=== PATIENT | male | born 1950 | race Caucasian/White ===

== ENCOUNTER 2017-04-02 08:54 | Emergency (ER) | payer OTHER, SELFPAY ==
--- NOTE | 2017-04-02 10:08 | RAD ---
LEFT FOOT THREE VIEWS: History: Injury. There is a wound on the left foot, possible infection. FINDINGS: There are enthesophytes from both posterior implants or calcaneus. Mild degenerative changes with ti biotalar joint and intertarsal joints. Degenerative changes at the tarsal metatarsal joints. Mild de generative changes at the first MTP and first IP joint. No fracture or acute osseous lesion. No focal lytic or destructive process. No plain film evidence o f osteomyelitis identified. IMPRESSION: Degenerative changes as described. POS: [facility]
== END 2017-04-02 10:59 | disposition home or self-care (01) ==
LOC: ERS 08:54
DX: M25.572 Pain in left ankle and joints of left foot (principal)

== ENCOUNTER 2017-11-08 12:14 | Inpatient (IN) | payer OTHER, SELFPAY ==
[2017-11-08] MEDS ORDERED: Morphine 4 MG/ML VIAL ONE (13:03)
--- NOTE | 2017-11-08 13:51 | RAD ---
RIGHT SHOULDER 3 VIEWS: Date: 11/08/17 HISTORY: Fall, right shoulder pain. FINDINGS/IMPRESSION: Degenerative changes are present. There is a fracture involving the right clavicular shaft with 5.5 c m overlap of the fracture fragments. There are fractures of the right 3rd, 4th, and 5th ribs. POS: [facility]
[2017-11-08 14:10] LABS: #Eosinphils 0.1 thou/uL (0.0-0.7); #Lymphocytes 0.8 thou/uL (1.20-3.40); #Monocytes 0.5 thou/uL (0.11-0.59); %Basophils 0.1 % (0.0-1.0); %Eosinophils 0.9 % (0.0-10.0); %Lymphocytes 6.7 % (21.0-51.0); %Monocytes 3.9 % (0.0-10.0); %Neutrophils 88.4 % (42.0-75.0); Hemoglobin 13.4 g/dL (14.0-18.0); Mean Corpuscular HGB CONC 33.6 g/dL (32.0-36.0); Mean Corpuscular Hemoglobin 33.5 pg (27.0-31.0); Mean Corpuscular Volume 99.6 fl (80.0-94.0); Mean Platelet Volume 8.8 fL (7.4-10.4); Platelet Count 135 thou/uL (130-400); RBC Distribution Width 11.9 % (11.5-14.5); Red Blood Cell (RBC) Count 4.01 mill/uL (4.70-6.10); White Blood Cell (WBC) Count 12.5 thou/uL (4.8-10.8)
[2017-11-08] MEDS ORDERED: Ketorolac Tromethamine 30 MG/ML VIAL ONE (14:23)
[2017-11-08 14:30] LABS: ALT (SGPT) 40 U/L (8-55); AST (SGOT) 58 U/L (5-34); Albumin 4.1 g/dL (3.4-4.8); Alkaline Phosphatase 92 U/L (40-150); Anion Gap 10 mmol/L (10-20); BUN (Urea Nitrogen) 15 mg/dL (8.4-25.7); Bilirubin, Total 0.9 mg/dL (0.2-1.2); Calc. Creatinine Clearance 0 mL/min (70-130); Calcium 9.2 mg/dL (7.8-10.44); Carbon Dioxide 24 mmol/L (23-31); Chloride 107 mmol/L (98-107); Estimated GFR-MDRD 75; Globulin 3.2 g/dL (2.4-3.5); Glucose 168 mg/dL (80-115); Potassium 4.3 mmol/L (3.5-5.1); Protein, Total 7.3 g/dL (5.8-8.1); Sodium 137 mmol/L (136-145)
--- NOTE | 2017-11-08 14:56 | RAD ---
RIGHT CLAVICLE 2 VIEWS: Date: 11/08/17 HISTORY: Fall, pain. FINDINGS/IMPRESSION: There is a fracture involving the clavicular shaft with overriding of the clavicular fragments. Multi ple right-sided rib fractures are present. POS: [facility]
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
[2017-11-08] MEDS ORDERED: Dextrose 5% in Water 1,000 ML IV PRN (19:06)
[2017-11-08] MEDS ORDERED: HumaLOG 300 UNITS/3 ML VIAL SC PRN (19:06)
[2017-11-08] MEDS ORDERED: Ondansetron ODT 4 MG TAB PO PRN (19:06)
[2017-11-08] MEDS ORDERED: Dextrose 50% Abboject 50 ML SYRINGE SLOW IVP PRN (19:06)
[2017-11-08] MEDS ORDERED: Rib Fracture Protocol PO SCH (19:15)
[2017-11-08] MEDS ORDERED: Cyclobenzaprine 10 MG TAB PO PRN (19:30)
[2017-11-08] MEDS ORDERED: Ondansetron HCl/PF 4 MG/2 ML Vial IVP PRN (19:36)
[2017-11-08] MEDS ORDERED: Ondansetron ODT 4 MG TAB SL PRN (19:36)
[2017-11-08 19:43] LABS: INR-International Normal Ratio 1.1; PTT 23.4 SEC (22.9-36.1); Prothrombin Time 14.5 SEC (12.0-14.7)
[2017-11-08 19:44] LABS: Hemoglobin A1c 6.2 % (4.0-6.0)
[2017-11-08 20:07] VITALS: BMI 28.2
[2017-11-08] MEDS: Sodium Chloride 0.9% 1,000 ML IV SCH (20:36)
[2017-11-08] MEDS: Famotidine 20 MG TAB PO SCH (20:45)
[2017-11-08] MEDS: Gabapentin 100 MG CAP PO SCH (20:45)
[2017-11-08] MEDS: Ibuprofen 600 MG TAB PO SCH (20:45)
[2017-11-08] MEDS: traMADol HCl 50 MG TAB PO SCH (23:41)
[2017-11-08] MEDS: Acetaminophen 500 MG TAB PO SCH (23:41)
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
[2017-11-09] MEDS: Acetaminophen 500 MG TAB PO SCH ×2 (06:10→12:01)
[2017-11-09] MEDS: traMADol HCl 50 MG TAB PO SCH ×2 (06:10→12:01)
[2017-11-09] MEDS: Ibuprofen 600 MG TAB PO SCH ×2 (06:10→14:44)
[2017-11-09] MEDS: Sodium Chloride 0.9% 1,000 ML IV SCH (06:19)
[2017-11-09] MEDS: Gabapentin 100 MG CAP PO SCH ×2 (09:06→14:44)
[2017-11-09] MEDS: Famotidine 20 MG TAB PO SCH (09:06)
--- NOTE | 2017-11-09 09:08 | RAD ---
PORTABLE UPRIGHT FRONTAL CHEST RADIOGRAPH: DATE: 11/09/17. COMPARISON: 07/24/16. HISTORY: Fracture, pneumothorax. FINDINGS: Heart and mediastinal contours are within normal limits. Numerous mildly displaced fractures are seen involving the numerous right-sided ribs laterally in the right lung apex region. There is an obliquely oriented displaced mid shaft right clavicle fracture. There is no pneumothorax seen. There is increased linear interstitial density noted. IMPRESSION: Multiple stable right-sided rib fractures. Obliquely oriented right clavicle fracture. No pneumotho rax seen. POS: [facility]
[2017-11-09 15:53] VITALS: BP 162/74; TEMP 98.2
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
== END 2017-11-09 17:56 | disposition home or self-care (01) | DRG 200 ==
LOC: ERS 12:14 → SURG B 18:18
PROVIDERS: ADMIT Surgery; ATTEND Surgery
DX: S27.0XXA Traumatic pneumothorax, initial encounter (principal); S22.32XA Fracture of one rib, left side, initial encounter for closed fracture; S22.31XA Fracture of one rib, right side, initial encounter for closed fracture; R41.3 Other amnesia; Z79.01 Long term (current) use of anticoagulants; V19.9XXA Pedal cyclist (driver) (passenger) injured in unspecified traffic accident, initial encounter; S42.001A Fracture of unspecified part of right clavicle, initial encounter for closed fracture; R73.03 Prediabetes; R73.9 Hyperglycemia, unspecified
CPT/HCPCS: 36415; 36416; 71045; 80053; 83036; 85025; 85610; 85730; 94640; 96374; 96375; A4216; G8978-GP-CJ; G8979-GP-CJ; G8980-GP-CJ; G8987-GO-CJ; G8989-GO-CJ; J1885; J2270; J7620

== ENCOUNTER 2021-09-28 11:16 | Inpatient (IN) | payer OTHER, SELFPAY ==
[2021-09-28 12:27] LABS: #Eosinphils 0.1 thou/uL (0.0-0.7); #Lymphocytes 1.2 thou/uL (1.20-3.40); #Monocytes 0.5 thou/uL (0.11-0.59); #Neutrophils 4.4 thou/uL (1.40-6.50); %Basophils 0.2 % (0.0-1.0); %Eosinophils 1.7 % (0.0-10.0); %Lymphocytes 18.9 % (21.0-51.0); %Monocytes 8.4 % (0.0-10.0); %Neutrophils 70.8 % (42.0-75.0); Hemoglobin 15.1 g/dL (14.0-18.0); Mean Corpuscular HGB CONC 33.5 g/dL (32.0-36.0); Mean Corpuscular Hemoglobin 34.4 pg (27.0-31.0); Mean Platelet Volume 10.7 fL (7.4-10.4); Platelet Count 136 thou/uL (130-400); RBC Distribution Width 11.9 % (11.5-14.5); Red Blood Cell (RBC) Count 4.39 mill/uL (4.70-6.10); White Blood Cell (WBC) Count 6.2 thou/uL (4.8-10.8)
[2021-09-28 12:45] LABS: ALT (SGPT) 25 U/L (8-55); AST (SGOT) 25 U/L (5-34); Albumin 4.5 g/dL (3.4-4.8); Alkaline Phosphatase 89 U/L (40-110); Anion Gap 17 mmol/L (10-20); BUN (Urea Nitrogen) 14 mg/dL (8.4-25.7); Bilirubin, Total 1.8 mg/dL (0.2-1.2); Calc. Creatinine Clearance 0 mL/min (70-130); Calcium 9.5 mg/dL (7.8-10.44); Carbon Dioxide 21 mmol/L (23-31); Chloride 105 mmol/L (98-107); Globulin 2.9 g/dL (2.4-3.5); Glucose 142 mg/dL (80-115); Potassium 4.6 mmol/L (3.5-5.1); Protein, Total 7.4 g/dL (5.8-8.1); Sodium 138 mmol/L (136-145)
[2021-09-28 12:51] LABS: Acetaminophen Less than 10.0 mcg/mL (10.0-30.0); Alcohol Less than 10 mg/dL (Less than 10); Salicylate Less than 8.0 mg/dL (15.0-30.0)
[2021-09-28 13:24] LABS: Bilirubin Negative (Negative); Blood, Urine Negative (Negative); Clarity Clear (Clear); Glucose, Urine (Dipstick) Normal (Negative); Ketone, Urine Trace mg/dL (Negative); Leukocyte Negative Leu/uL (Negative); Nitrite Negative (Negative); Protein, Urine (Dipstick) Negative (Neg-Trace); Specific Gravity, Urine 1.008 (1.002-1.036); Urobilinogen Normal mg/dL (Less than 2)
[2021-09-28 13:33] LABS: Amphetamine Not Detected (NotDetected); Barbiturates Screen Not Detected (NotDetected); Benzodiazepine Screen Not Detected (NotDetected); Cocaine Metabolite Screen Not Detected (NotDetected); Methadone Not Detected (NotDetected); Methamphetamine Not Detected (NotDetected); Opiate Screen Not Detected (NotDetected); Oxycodone Screen Not Detected (NotDetected); Phencyclidine (PCP) Not Detected (NotDetected); THC/Cannabinoid Screen Not Detected (NotDetected); Tricyclic Screen Not Detected (NotDetected)
[2021-09-28] MEDS ORDERED: Acetaminophen 325 MG TAB PO PRN (14:03)
[2021-09-28 15:27] LABS: HIV (1/2) Antibody/Antigen Non-Reactive (NonReactive); HIV 1/2 INDEX 0.13 S/CO (<1.00)
[2021-09-28] MEDS: Thiamine HCl 200 MG/2 ML VIAL SLOW IVP SCH (15:32)
[2021-09-28 15:33] LABS: Vitamin B12 535 pg/mL (211-911)
[2021-09-28 15:39] VITALS: BMI 32.0
[2021-09-28 16:32] LABS: SARS-CoV-2 NAA Rapid Test Not Detected (NotDetected)
[2021-09-29 08:16] LABS: #Eosinphils 0.1 thou/uL (0.0-0.7); #Lymphocytes 1.3 thou/uL (1.20-3.40); #Monocytes 0.5 thou/uL (0.11-0.59); #Neutrophils 3.7 thou/uL (1.40-6.50); %Basophils 0.5 % (0.0-1.0); %Eosinophils 2.3 % (0.0-10.0); %Lymphocytes 22.2 % (21.0-51.0); %Monocytes 8.3 % (0.0-10.0); %Neutrophils 66.6 % (42.0-75.0); Hemoglobin 13.3 g/dL (14.0-18.0); Mean Corpuscular HGB CONC 33.5 g/dL (32.0-36.0); Mean Corpuscular Hemoglobin 34.7 pg (27.0-31.0); Mean Platelet Volume 10.7 fL (7.4-10.4); Platelet Count 120 thou/uL (130-400); RBC Distribution Width 11.9 % (11.5-14.5); Red Blood Cell (RBC) Count 3.82 mill/uL (4.70-6.10); White Blood Cell (WBC) Count 5.6 thou/uL (4.8-10.8)
[2021-09-29 08:36] LABS: ALT (SGPT) 21 U/L (8-55); AST (SGOT) 17 U/L (5-34); Albumin 3.9 g/dL (3.4-4.8); Alkaline Phosphatase 68 U/L (40-110); Anion Gap 13 mmol/L (10-20); BUN (Urea Nitrogen) 11 mg/dL (8.4-25.7); Bilirubin, Total 1.2 mg/dL (0.2-1.2); Calc. Creatinine Clearance 94 mL/min (70-130); Carbon Dioxide 23 mmol/L (23-31); Chloride 107 mmol/L (98-107); Globulin 2.5 g/dL (2.4-3.5); Glucose 134 mg/dL (80-115); Potassium 3.7 mmol/L (3.5-5.1); Protein, Total 6.4 g/dL (5.8-8.1); Sodium 139 mmol/L (136-145)
[2021-09-29] MEDS: Folic Acid 1 MG TAB PO SCH (08:50)
[2021-09-29] MEDS: Enoxaparin Sodium 40 MG/0.4 ML SYRINGE SC SCH (08:50)
[2021-09-29 09:34] LABS: Hep C IgG Ab Non-Reactive (NonReactive); Hep C Index 0.06 S/CO (0-0.79)
[2021-09-29 11:52] LABS: Syphilis Antibody Nonreactive (Nonreactive); Syphilis Antibody Index 0.04 S/CO (<1.00 Non-Reactive)
[2021-09-29] MEDS: Thiamine HCl 200 MG/2 ML VIAL SLOW IVP SCH (14:43)
[2021-09-30] MEDS: Enoxaparin Sodium 40 MG/0.4 ML SYRINGE SC SCH (09:17)
[2021-09-30] MEDS: Folic Acid 1 MG TAB PO SCH (09:17)
[2021-09-30] MEDS: Thiamine HCl 200 MG/2 ML VIAL SLOW IVP SCH (15:08)
[2021-10-01] MEDS: Folic Acid 1 MG TAB PO SCH (08:38)
[2021-10-01] MEDS: Enoxaparin Sodium 40 MG/0.4 ML SYRINGE SC SCH (08:38)
[2021-10-02] MEDS: Folic Acid 1 MG TAB PO SCH (08:25)
[2021-10-02] MEDS: Enoxaparin Sodium 40 MG/0.4 ML SYRINGE SC SCH (08:26)
[2021-10-03] MEDS: Folic Acid 1 MG TAB PO SCH (08:53)
[2021-10-03] MEDS: Enoxaparin Sodium 40 MG/0.4 ML SYRINGE SC SCH (08:53)
[2021-10-04] MEDS: Enoxaparin Sodium 40 MG/0.4 ML SYRINGE SC SCH (08:17)
[2021-10-04] MEDS: Folic Acid 1 MG TAB PO SCH (08:17)
[2021-10-04 22:58] LABS: SARS-CoV-2 PCR by NAA Not Detected (NotDetected)
[2021-10-05] MEDS: Folic Acid 1 MG TAB PO SCH (08:51)
[2021-10-05] MEDS: Enoxaparin Sodium 40 MG/0.4 ML SYRINGE SC SCH (08:51)
[2021-10-05] MEDS: Cholecalciferol 1,000 UNITS (25 MCG) TAB PO SCH (08:51)
[2021-10-05] MEDS: Donepezil HCl 10 MG TAB PO SCH (08:52)
[2021-10-05] MEDS: Loratadine 10 MG TAB PO SCH (08:52)
[2021-10-05] MEDS: Cyanocobalamin (Vitamin B-12) 1,000 MCG TAB PO SCH (08:52)
[2021-10-05] MEDS ORDERED: CHOLECALCIFEROL 50 MCG PO SCH (09:00)
[2021-10-06] MEDS: Folic Acid 1 MG TAB PO SCH (08:57)
[2021-10-06] MEDS: Enoxaparin Sodium 40 MG/0.4 ML SYRINGE SC SCH (08:57)
[2021-10-06] MEDS: Cholecalciferol 1,000 UNITS (25 MCG) TAB PO SCH (08:57)
[2021-10-06] MEDS: Cyanocobalamin (Vitamin B-12) 1,000 MCG TAB PO SCH (08:57)
[2021-10-06] MEDS: Loratadine 10 MG TAB PO SCH (08:57)
[2021-10-06] MEDS: Donepezil HCl 10 MG TAB PO SCH (08:57)
[2021-10-07] MEDS: Cholecalciferol 1,000 UNITS (25 MCG) TAB PO SCH (08:09)
[2021-10-07] MEDS: Folic Acid 1 MG TAB PO SCH (08:09)
[2021-10-07] MEDS: Donepezil HCl 10 MG TAB PO SCH (08:09)
[2021-10-07] MEDS: Enoxaparin Sodium 40 MG/0.4 ML SYRINGE SC SCH (08:10)
[2021-10-07] MEDS: Cyanocobalamin (Vitamin B-12) 1,000 MCG TAB PO SCH (08:10)
[2021-10-07] MEDS: Loratadine 10 MG TAB PO SCH (08:10)
[2021-10-08] MEDS: Enoxaparin Sodium 40 MG/0.4 ML SYRINGE SC SCH (09:10)
[2021-10-08] MEDS: Donepezil HCl 10 MG TAB PO SCH (09:11)
[2021-10-08] MEDS: Folic Acid 1 MG TAB PO SCH (09:11)
[2021-10-08] MEDS: Loratadine 10 MG TAB PO SCH (09:11)
[2021-10-08] MEDS: Cyanocobalamin (Vitamin B-12) 1,000 MCG TAB PO SCH (09:11)
[2021-10-08] MEDS: Cholecalciferol 1,000 UNITS (25 MCG) TAB PO SCH (09:13)
[2021-10-09] MEDS: Enoxaparin Sodium 40 MG/0.4 ML SYRINGE SC SCH (07:55)
[2021-10-09] MEDS: Cholecalciferol 1,000 UNITS (25 MCG) TAB PO SCH (07:55)
[2021-10-09] MEDS: Cyanocobalamin (Vitamin B-12) 1,000 MCG TAB PO SCH (07:56)
[2021-10-09] MEDS: Donepezil HCl 10 MG TAB PO SCH (07:56)
[2021-10-09] MEDS: Folic Acid 1 MG TAB PO SCH (07:56)
[2021-10-09] MEDS: Loratadine 10 MG TAB PO SCH (07:56)
[2021-10-09 08:23] VITALS: BP 125/80; TEMP 97.8
== END 2021-10-09 15:10 | DRG 56 ==
LOC: ERS 11:16 → T4-B 13:30 → OBSVTOIN 10-01 11:36
PROVIDERS: ADMIT Family Medicine; ATTEND Family Medicine
DX: G30.9 Alzheimer's disease, unspecified (principal); G93.41 Metabolic encephalopathy; Z20.822 Contact with and (suspected) exposure to COVID-19; F02.80 Dementia in other diseases classified elsewhere, unspecified severity, without behavioral disturbance, psychotic disturbance, mood disturbance, and anxiety; D75.89 Other specified diseases of blood and blood-forming organs; Z79.899 Other long term (current) drug therapy
CPT/HCPCS: 36415; 36416; 70450; 71045; 80053; 80306; 80307; 81003; 82140; 82607; 82746; 83605; 83880; 84443; 84484; 85025; 86780; 86803; 87040; 87086; 87389; 93005; J1650; J3411; U0002; U0003; U0005

== ENCOUNTER 2022-02-08 18:49 | Observation (INO) | payer OTHER ==
[2022-02-08 19:46] LABS: #Eosinphils 0.1 thou/uL (0.0-0.7); #Lymphocytes 1.1 thou/uL (1.20-3.40); #Monocytes 0.8 thou/uL (0.11-0.59); #Neutrophils 8.6 thou/uL (1.40-6.50); %Basophils 0.1 % (0.0-1.0); %Eosinophils 1.3 % (0.0-10.0); %Lymphocytes 10.7 % (21.0-51.0); %Monocytes 7.1 % (0.0-10.0); %Neutrophils 80.8 % (42.0-75.0); Hemoglobin 12.8 g/dL (14.0-18.0); Mean Corpuscular HGB CONC 33.7 g/dL (32.0-36.0); Mean Corpuscular Hemoglobin 34.3 pg (27.0-31.0); Platelet Count 138 thou/uL (130-400); RBC Distribution Width 12.8 % (11.5-14.5); Red Blood Cell (RBC) Count 3.73 mill/uL (4.70-6.10); White Blood Cell (WBC) Count 10.6 thou/uL (4.8-10.8)
[2022-02-08 20:06] LABS: ALT (SGPT) 37 U/L (8-55); AST (SGOT) 33 U/L (5-34); Acetaminophen Less than 10.0 mcg/mL (10.0-30.0); Albumin 3.8 g/dL (3.4-4.8); Alcohol Less than 10 mg/dL (Less than 10); Alkaline Phosphatase 104 U/L (40-110); Anion Gap 17 mmol/L (10-20); BUN (Urea Nitrogen) 13 mg/dL (8.4-25.7); Bilirubin, Total 1.1 mg/dL (0.2-1.2); CK (CPK) 293 U/L (30-200); Calc. Creatinine Clearance 0 mL/min (70-130); Calcium 9.5 mg/dL (7.8-10.44); Carbon Dioxide 24 mmol/L (23-31); Chloride 105 mmol/L (98-107); Estimated GFR 85; Glucose 150 mg/dL (80-115); Potassium 3.8 mmol/L (3.5-5.1); Protein, Total 6.8 g/dL (5.8-8.1); Salicylate Less than 8.0 mg/dL (15.0-30.0); Sodium 142 mmol/L (136-145)
[2022-02-08] MEDS ORDERED: Haloperidol Lactate 5 MG/ML VIAL ONE (20:31)
[2022-02-08] MEDS ORDERED: Lorazepam (BATCHED) 2 MG/ML SYR ONE (23:31)
[2022-02-09] MEDS ORDERED: Ondansetron PF 4 MG/2 ML Vial IVP PRN ×2 (02:00→03:18)
[2022-02-09] MEDS ORDERED: Ondansetron ODT 4 MG TAB SL PRN (02:00)
[2022-02-09] MEDS ORDERED: Acetaminophen 325 MG TAB PO PRN ×2 (02:00→03:18)
[2022-02-09] MEDS ORDERED: Cefepime 2 GM in Sodium Chloride 0.9% 100 ML IVPB SCH (02:00)
[2022-02-09 02:18] VITALS: BMI 25.7
[2022-02-09] MEDS ORDERED: Bisacodyl 5 MG TAB PO PRN (03:18)
[2022-02-09] MEDS ORDERED: Ondansetron ODT 4 MG TAB PO PRN (03:18)
[2022-02-09] MEDS ORDERED: Guaifenesin DM 100-10/5 ML UDCUP PO PRN (03:18)
[2022-02-09] MEDS ORDERED: Senokot S 8.6-50 MG TAB PO PRN (03:18)
[2022-02-09] MEDS ORDERED: Calcium Carbonate 500 MG ChewTAB PO PRN (03:18)
[2022-02-09] MEDS ORDERED: Acetaminophen 650 MG Suppository PR PRN (03:18)
[2022-02-09] MEDS ORDERED: Dextrose 5% in Water 1,000 ML IV PRN (03:23)
[2022-02-09] MEDS ORDERED: HumaLOG 300 UNITS/3 ML VIAL SC PRN ×2 (03:23)
[2022-02-09] MEDS ORDERED: Dextrose 50% Abboject 50 ML SYRINGE SLOW IVP PRN (03:23)
[2022-02-09 12:58] LABS: Bilirubin Negative (Negative); Blood, Urine Negative (Negative); Clarity Clear (Clear); Glucose, Urine (Dipstick) Normal (Negative); Ketone, Urine 20 mg/dL (Negative); Leukocyte 25 Leu/uL (Negative); Nitrite Negative (Negative); Protein, Urine (Dipstick) Negative (Neg-Trace); RBC/HPF 0-3 HPF (0-3); Specific Gravity, Urine 1.016 (1.002-1.036); Squamous Epithelial 0-3 HPF (0-3); Urobilinogen Normal mg/dL (Less than 2); WBC/HPF 0-3 HPF (0-3); pH, Urine 5.5 (5.0-9.0)
[2022-02-09 12:59] LABS: Bacteria/HPF 1+ HPF (None Seen); Urine Culture Reflex Yes Yes
[2022-02-10 15:54] VITALS: BP 117/61; TEMP 97.9
== END 2022-02-10 18:02 ==
LOC: ERS 18:49 → NEURO 02-09 00:54
PROVIDERS: ADMIT Internal Medicine; ATTEND Internal Medicine
DX: G93.41 Metabolic encephalopathy (principal); G30.9 Alzheimer's disease, unspecified; F02.80 Dementia in other diseases classified elsewhere, unspecified severity, without behavioral disturbance, psychotic disturbance, mood disturbance, and anxiety; N47.1 Phimosis; Z86.16 Personal history of COVID-19; Z79.899 Other long term (current) drug therapy; Z20.822 Contact with and (suspected) exposure to COVID-19
CPT/HCPCS: 36415; 36416; 70450; 71045; 80053; 80307; 81001; 82140; 82550; 83690; 84443; 84484; 85025; 87086; 93005; 96375; G0378; J0692; J1630; J2060; J3490; U0003; U0005

== ENCOUNTER 2022-02-10 22:36 | Emergency (ER) | payer OTHER, MEDICAID ==
[2022-02-10 23:51] LABS: #Eosinphils 0.2 thou/uL (0.0-0.7); #Lymphocytes 0.8 thou/uL (1.20-3.40); #Monocytes 0.6 thou/uL (0.11-0.59); #Neutrophils 8.3 thou/uL (1.40-6.50); %Basophils 0.3 % (0.0-1.0); %Eosinophils 1.6 % (0.0-10.0); %Lymphocytes 8.5 % (21.0-51.0); %Monocytes 5.7 % (0.0-10.0); Hemoglobin 13.9 g/dL (14.0-18.0); Mean Corpuscular HGB CONC 34.5 g/dL (32.0-36.0); Mean Corpuscular Hemoglobin 34.8 pg (27.0-31.0); Mean Platelet Volume 10.3 fL (7.4-10.4); Platelet Count 152 thou/uL (130-400); RBC Distribution Width 12.7 % (11.5-14.5); Red Blood Cell (RBC) Count 3.99 mill/uL (4.70-6.10); White Blood Cell (WBC) Count 9.9 thou/uL (4.8-10.8)
[2022-02-11 00:11] LABS: ALT (SGPT) 34 U/L (8-55); AST (SGOT) 26 U/L (5-34); Alkaline Phosphatase 105 U/L (40-110); Anion Gap 15 mmol/L (10-20); BUN (Urea Nitrogen) 13 mg/dL (8.4-25.7); Bilirubin, Total 1.4 mg/dL (0.2-1.2); Calc. Creatinine Clearance 0 mL/min (70-130); Calcium 10.3 mg/dL (7.8-10.44); Carbon Dioxide 27 mmol/L (23-31); Chloride 104 mmol/L (98-107); Estimated GFR 70; Glucose 207 mg/dL (80-115); Potassium 3.8 mmol/L (3.5-5.1); Sodium 142 mmol/L (136-145)
== END 2022-02-11 01:21 ==
LOC: ERS 22:36
DX: R41.0 Disorientation, unspecified (principal); F41.9 Anxiety disorder, unspecified; Z86.16 Personal history of COVID-19
CPT/HCPCS: 36415; 36416; 71045; 80053; 85025; 93005

== ENCOUNTER 2022-02-22 18:26 | Emergency (ER) | payer OTHER ==
[2022-02-22 19:32] LABS: #Eosinphils 0.1 thou/uL (0.0-0.7); #Monocytes 0.4 thou/uL (0.11-0.59); %Basophils 0.5 % (0.0-1.0); %Eosinophils 2.3 % (0.0-10.0); %Lymphocytes 17.8 % (21.0-51.0); %Monocytes 7.4 % (0.0-10.0); Hemoglobin 10.4 g/dL (14.0-18.0); Mean Corpuscular Hemoglobin 33.7 pg (27.0-31.0); Mean Platelet Volume 11.4 fL (7.4-10.4); Platelet Count 110 thou/uL (130-400); RBC Distribution Width 12.9 % (11.5-14.5); White Blood Cell (WBC) Count 5.5 thou/uL (4.8-10.8)
[2022-02-22 19:51] LABS: Platelet Morphology Comment Appears Decreased
[2022-02-22] MEDS ORDERED: Lorazepam 2 MG/ML VIAL ONE (19:59)
[2022-02-22 20:47] LABS: ALT (SGPT) 14 U/L (8-55); AST (SGOT) 15 U/L (5-34); Albumin 3.4 g/dL (3.4-4.8); Alkaline Phosphatase 88 U/L (40-110); Anion Gap 14 mmol/L (10-20); BUN (Urea Nitrogen) 13 mg/dL (8.4-25.7); Bilirubin, Total 0.6 mg/dL (0.2-1.2); Calc. Creatinine Clearance 0 mL/min (70-130); Carbon Dioxide 22 mmol/L (23-31); Chloride 107 mmol/L (98-107); Estimated GFR 95; Globulin 2.5 g/dL (2.4-3.5); Glucose 117 mg/dL (80-115); Potassium 3.7 mmol/L (3.5-5.1); Protein, Total 5.9 g/dL (5.8-8.1); Sodium 139 mmol/L (136-145)
[2022-02-22 20:50] LABS: Acetaminophen Less than 10.0 mcg/mL (10.0-30.0); Alcohol Less than 10 mg/dL (Less than 10); Salicylate Less than 8.0 mg/dL (15.0-30.0)
[2022-02-22 21:11] LABS: Bilirubin Negative (Negative); Blood, Urine Negative (Negative); Clarity Clear (Clear); Glucose, Urine (Dipstick) Normal (Negative); Ketone, Urine Negative (Negative); Leukocyte Negative Leu/uL (Negative); Nitrite Negative (Negative); Protein, Urine (Dipstick) Negative (Neg-Trace); Specific Gravity, Urine 1.004 (1.002-1.036); Urobilinogen Normal mg/dL (Less than 2)
[2022-02-22 21:19] LABS: Amphetamine Not Detected (NotDetected); Barbiturates Screen Not Detected (NotDetected); Benzodiazepine Screen Not Detected (NotDetected); Cocaine Metabolite Screen Not Detected (NotDetected); Methadone Not Detected (NotDetected); Methamphetamine Not Detected (NotDetected); Opiate Screen Not Detected (NotDetected); Oxycodone Screen Not Detected (NotDetected); Phencyclidine (PCP) Not Detected (NotDetected); THC/Cannabinoid Screen Not Detected (NotDetected); Tricyclic Screen Detected (NotDetected)
[2022-02-22] MEDS ORDERED: cefTRIAXone\\ROCEPHIN 1 GM VIAL ONE (22:11)
== END 2022-02-22 23:09 | disposition home or self-care (01) ==
LOC: ERS 18:26
DX: R41.0 Disorientation, unspecified (principal); J18.9 Pneumonia, unspecified organism; Z86.16 Personal history of COVID-19
CPT/HCPCS: 36415; 51701; 70450; 71045; 80053; 80306; 80307; 81003; 82140; 84443; 84484; 85025; 93005; 96365; 96375; J0696; J2060

== ENCOUNTER 2022-03-16 10:25 | Inpatient (IN) | payer MEDICAID, MEDICARE, OTHER ==
[2022-03-16] MEDS ORDERED: Iopamidol-370 76% 500 ML 1 ML ONE (11:25)
[2022-03-16] MEDS ORDERED: CEFAZOLIN 1 GM VIAL ONE (11:50)
[2022-03-16] MEDS ORDERED: Boostrix 0.5 ML (Tdap) VIAL (>/=7 yrs of age) ONE (11:50)
[2022-03-16] MEDS ORDERED: Dextrose 5% in Water 1,000 ML IV PRN (11:58)
[2022-03-16] MEDS ORDERED: Ondansetron PF 4 MG/2 ML Vial IVP PRN (11:58)
[2022-03-16] MEDS ORDERED: hydrALAZINE 20 MG/ML VIAL SLOW IVP PRN (11:58)
[2022-03-16] MEDS ORDERED: Morphine 2 MG/ML VIAL SLOW IVP PRN (11:58)
[2022-03-16] MEDS ORDERED: Morphine 4 MG/ML VIAL SLOW IVP PRN (11:58)
[2022-03-16] MEDS ORDERED: Dextrose 50% Abboject 50 ML SYRINGE SLOW IVP PRN (11:58)
[2022-03-16 11:59] LABS: #Eosinphils 0.1 thou/uL (0.0-0.7); #Lymphocytes 0.6 thou/uL (1.20-3.40); #Monocytes 0.4 thou/uL (0.11-0.59); %Basophils 0.1 % (0.0-1.0); %Eosinophils 0.4 % (0.0-10.0); %Lymphocytes 3.9 % (21.0-51.0); %Monocytes 2.8 % (0.0-10.0); %Neutrophils 92.8 % (42.0-75.0); Hemoglobin 11.3 g/dL (14.0-18.0); Mean Corpuscular HGB CONC 32.1 g/dL (32.0-36.0); Mean Corpuscular Hemoglobin 32.9 pg (27.0-31.0); Mean Platelet Volume 11.6 fL (7.4-10.4); Platelet Count 114 thou/uL (130-400); RBC Distribution Width 13.5 % (11.5-14.5); Red Blood Cell (RBC) Count 3.42 mill/uL (4.70-6.10); White Blood Cell (WBC) Count 15.1 thou/uL (4.8-10.8)
[2022-03-16 12:07] LABS: INR-International Normal Ratio 1.1; Prothrombin Time 14.5 sec (12.0-14.7)
[2022-03-16 12:08] LABS: PTT 31.5 sec (22.9-36.1)
[2022-03-16] MEDS ORDERED: levETIRAcetam 500 MG/5 ML VIAL ONE ×3 (12:12→12:30)
[2022-03-16 12:14] LABS: ALT (SGPT) 14 U/L (8-55); AST (SGOT) 22 U/L (5-34); Albumin 3.8 g/dL (3.4-4.8); Alkaline Phosphatase 89 U/L (40-110); Anion Gap 17 mmol/L (10-20); BUN (Urea Nitrogen) 17 mg/dL (8.4-25.7); Bilirubin, Total 1.4 mg/dL (0.2-1.2); CK (CPK) 136 U/L (30-200); Calc. Creatinine Clearance 0 mL/min (70-130); Calcium 9.3 mg/dL (7.8-10.44); Carbon Dioxide 22 mmol/L (23-31); Chloride 104 mmol/L (98-107); Estimated GFR 87; Globulin 2.3 g/dL (2.4-3.5); Glucose 179 mg/dL (80-115); Magnesium 1.9 mg/dL (1.6-2.6); Potassium 4.2 mmol/L (3.5-5.1); Protein, Total 6.1 g/dL (5.8-8.1); Sodium 139 mmol/L (136-145)
[2022-03-16] MEDS ORDERED: Acetaminophen 500 MG TAB PO SCH (12:15)
[2022-03-16] MEDS ORDERED: Sodium Phosphate 30 MMOL in Sodium Chloride 0.9% 250 ML 250 ML IVPB SCH (12:30)
[2022-03-16] MEDS ORDERED: Ondansetron PF 4 MG/2 ML Vial ONE (13:19)
[2022-03-16 13:46] LABS: SARS-CoV-2 NAA Rapid Test Not Detected (NotDetected)
[2022-03-16] MEDS ORDERED: cefTRIAXone\\ROCEPHIN 2 GM VIAL ONE (15:11)
[2022-03-16] MEDS: Sodium Chloride 0.9% 1,000 ML IV SCH ×2 (15:18→22:13)
[2022-03-16] MEDS: cefTRIAXone\\ROCEPHIN 2 GM in Sodium Chloride 0.9% 100 ML IVPB SCH (15:18)
[2022-03-16] MEDS ORDERED: Tranexamic Acid 1,000 MG/10 ML VIAL ONE (15:51)
[2022-03-16] MEDS ORDERED: Insulin Regular 300 UNITS/3 ML VIAL ONE (16:01)
[2022-03-16] MEDS: Insulin Regular 300 UNITS/3 ML VIAL SC PRN (16:06)
[2022-03-16 18:28] LABS: Bacteria/HPF None Seen HPF (None Seen); Bilirubin Negative (Negative); Blood, Urine Negative (Negative); Clarity Clear (Clear); Glucose, Urine (Dipstick) 500 mg/dL (Negative); Ketone, Urine 20 mg/dL (Negative); Leukocyte Negative Leu/uL (Negative); Nitrite Negative (Negative); Protein, Urine (Dipstick) Negative (Neg-Trace); RBC/HPF 0-3 HPF (0-3); Specific Gravity, Urine 1.039 (1.002-1.036); Squamous Epithelial 0-3 HPF (0-3); Urobilinogen Normal mg/dL (Less than 2); WBC/HPF 0-3 HPF (0-3); pH, Urine 6.5 (5.0-9.0)
[2022-03-16 18:41] LABS: Urine Culture Reflex No No
[2022-03-16] MEDS: Acetaminophen 500 MG TAB PO SCH (19:24)
[2022-03-16] MEDS: levETIRAcetam 500 MG/5 ML VIAL SLOW IVP SCH (20:38)
[2022-03-16] MEDS: Famotidine/PF 20 mg/2ml Vial SLOW IVP SCH (20:38)
[2022-03-16] MEDS: Senokot S 8.6-50 MG TAB PO SCH (21:39)
[2022-03-17] MEDS: Acetaminophen 500 MG TAB PO SCH ×5 (00:34→23:20)
[2022-03-17] MEDS: Insulin Regular 300 UNITS/3 ML VIAL SC PRN (00:48)
[2022-03-17 04:43] LABS: Anion Gap 17 mmol/L (10-20); BUN (Urea Nitrogen) 14 mg/dL (8.4-25.7); Calc. Creatinine Clearance 72 mL/min (70-130); Carbon Dioxide 18 mmol/L (23-31); Chloride 107 mmol/L (98-107); Estimated GFR 94; Glucose 148 mg/dL (80-115); Magnesium 1.8 mg/dL (1.6-2.6); Phosphorus 3.4 mg/dL (2.3-4.7); Potassium 3.6 mmol/L (3.5-5.1); Sodium 138 mmol/L (136-145)
[2022-03-17 06:49] LABS: #Lymphocytes 0.8 thou/uL (1.20-3.40); #Monocytes 0.9 thou/uL (0.11-0.59); #Neutrophils 15.7 thou/uL (1.40-6.50); %Basophils 0.1 % (0.0-1.0); %Eosinophils 0.1 % (0.0-10.0); %Lymphocytes 4.8 % (21.0-51.0); %Monocytes 5.1 % (0.0-10.0); %Neutrophils 89.9 % (42.0-75.0); Hemoglobin 11.7 g/dL (14.0-18.0); Large Platelets MODERATE; MDiff Complete? YES; Macrocytosis SLIGHT = 6-15 cells (100X) (0-5/hpf); Mean Corpuscular HGB CONC 31.8 g/dL (32.0-36.0); Mean Corpuscular Hemoglobin 33.4 pg (27.0-31.0); Mean Platelet Volume 12.1 fL (7.4-10.4); Platelet Count 113 thou/uL (130-400); Platelet Morphology Comment Appears Decreased; Polychromasia SLIGHT = 2-3 cells (100X) (0-2/hpf); RBC Distribution Width 13.3 % (11.5-14.5); Red Blood Cell (RBC) Count 3.51 mill/uL (4.70-6.10); White Blood Cell (WBC) Count 17.5 thou/uL (4.8-10.8)
[2022-03-17] MEDS ORDERED: Magnesium 2 GM/50 ML(in water) 2 GM in Premix Bag 1 BAG IVPB SCH (07:15)
[2022-03-17] MEDS ORDERED: Potassium Phosphate 15 MMOL in Sodium Chloride 0.9% 250 ML 250 ML IVPB SCH (08:00)
[2022-03-17] MEDS: Famotidine/PF 20 mg/2ml Vial SLOW IVP SCH ×2 (08:29→20:40)
[2022-03-17] MEDS: levETIRAcetam 500 MG/5 ML VIAL SLOW IVP SCH ×2 (08:33→20:39)
[2022-03-17] MEDS: Senokot S 8.6-50 MG TAB PO SCH ×2 (08:34→20:40)
[2022-03-17] MEDS: Sodium Chloride 0.9% 1,000 ML IV SCH ×2 (08:35→18:48)
[2022-03-17] MEDS: Polyethylene Glycol 3350 17 GM Packet PO SCH (08:35)
[2022-03-17] MEDS ORDERED: FLU VACC QS2022-23(65YR UP)/PF 240 MCG/0.7 ML SYRINGE IM ONE (09:00)
[2022-03-17] MEDS: cefTRIAXone\\ROCEPHIN 2 GM in Sodium Chloride 0.9% 100 ML IVPB SCH (13:17)
[2022-03-17] MEDS ORDERED: Acetaminophen/Codeine 30-300mg Tablet PO PRN (14:18)
[2022-03-17] MEDS ORDERED: Acetaminophen/Codeine 30-300mg Tablet PO SCH (14:45)
[2022-03-17] MEDS ORDERED: Acetaminophen 500 MG TAB PO SCH (14:45)
[2022-03-17] MEDS: Acetaminophen/Codeine 30-300mg Tablet PO SCH ×2 (18:46→23:21)
[2022-03-18] MEDS: Sodium Chloride 0.9% 1,000 ML IV SCH ×3 (02:01→20:47)
[2022-03-18 04:51] LABS: Anion Gap 9 mmol/L (10-20); BUN (Urea Nitrogen) 14 mg/dL (8.4-25.7); Calc. Creatinine Clearance 83 mL/min (70-130); Calcium 8.4 mg/dL (7.8-10.44); Carbon Dioxide 24 mmol/L (23-31); Chloride 110 mmol/L (98-107); Estimated GFR 98; Glucose 143 mg/dL (80-115); Magnesium 2.1 mg/dL (1.6-2.6); Phosphorus 2.1 mg/dL (2.3-4.7); Potassium 4.3 mmol/L (3.5-5.1); Sodium 139 mmol/L (136-145)
[2022-03-18 04:52] LABS: #Lymphocytes 0.7 thou/uL (1.20-3.40); #Monocytes 0.6 thou/uL (0.11-0.59); #Neutrophils 8.4 thou/uL (1.40-6.50); %Basophils 0.2 % (0.0-1.0); %Eosinophils 0.2 % (0.0-10.0); %Lymphocytes 7.5 % (21.0-51.0); %Monocytes 6.1 % (0.0-10.0); %Neutrophils 86.1 % (42.0-75.0); Hemoglobin 9.7 g/dL (14.0-18.0); Mean Corpuscular HGB CONC 32.4 g/dL (32.0-36.0); Mean Corpuscular Hemoglobin 33.4 pg (27.0-31.0); Mean Platelet Volume 12.1 fL (7.4-10.4); Platelet Count 80 thou/uL (130-400); Platelet Morphology Comment Appears Decreased; RBC Distribution Width 13.5 % (11.5-14.5); Red Blood Cell (RBC) Count 2.89 mill/uL (4.70-6.10); White Blood Cell (WBC) Count 9.8 thou/uL (4.8-10.8)
[2022-03-18] MEDS: Acetaminophen 500 MG TAB PO SCH ×4 (05:55→23:17)
[2022-03-18] MEDS: Acetaminophen/Codeine 30-300mg Tablet PO SCH ×4 (05:56→23:14)
[2022-03-18] MEDS: Famotidine/PF 20 mg/2ml Vial SLOW IVP SCH (08:55)
[2022-03-18] MEDS: levETIRAcetam 500 MG/5 ML VIAL SLOW IVP SCH ×2 (08:55→21:09)
[2022-03-18] MEDS: Polyethylene Glycol 3350 17 GM Packet PO SCH (09:16)
[2022-03-18] MEDS: Senokot S 8.6-50 MG TAB PO SCH ×2 (09:16→21:09)
[2022-03-18] MEDS: cefTRIAXone\\ROCEPHIN 2 GM in Sodium Chloride 0.9% 100 ML IVPB SCH (13:53)
[2022-03-18] MEDS ORDERED: Haloperidol Lactate 5 MG/ML VIAL IM PRN (20:35)
[2022-03-18] MEDS: Lorazepam 0.5 MG TAB PO PRN (22:29)
[2022-03-19 01:49] VITALS: BMI 22.1
[2022-03-19] MEDS: Lorazepam 0.5 MG TAB PO PRN ×2 (04:42→19:33)
[2022-03-19] MEDS: Sodium Chloride 0.9% 1,000 ML IV SCH (04:50)
[2022-03-19] MEDS: Acetaminophen/Codeine 30-300mg Tablet PO SCH ×4 (05:46→19:31)
[2022-03-19] MEDS: Acetaminophen 500 MG TAB PO SCH ×4 (05:48→23:18)
[2022-03-19] MEDS: Polyethylene Glycol 3350 17 GM Packet PO SCH (09:11)
[2022-03-19] MEDS: levETIRAcetam 500 MG/5 ML VIAL SLOW IVP SCH ×2 (09:12→19:39)
[2022-03-19] MEDS: Donepezil HCl 10 MG TAB PO SCH (09:12)
[2022-03-19] MEDS: Senokot S 8.6-50 MG TAB PO SCH ×2 (09:12→19:39)
[2022-03-19] MEDS: cefTRIAXone\\ROCEPHIN 2 GM in Sodium Chloride 0.9% 100 ML IVPB SCH (12:34)
[2022-03-20] MEDS: Acetaminophen 500 MG TAB PO SCH ×4 (05:18→23:59)
[2022-03-20] MEDS: Acetaminophen/Codeine 30-300mg Tablet PO SCH ×4 (05:18→23:58)
[2022-03-20] MEDS: Donepezil HCl 10 MG TAB PO SCH (08:35)
[2022-03-20] MEDS: Polyethylene Glycol 3350 17 GM Packet PO SCH (08:35)
[2022-03-20] MEDS: Senokot S 8.6-50 MG TAB PO SCH ×2 (08:35→21:33)
[2022-03-20] MEDS: levETIRAcetam 500 MG/5 ML VIAL SLOW IVP SCH (10:13)
[2022-03-20] MEDS: Lorazepam 0.5 MG TAB PO PRN (23:59)
[2022-03-21] MEDS: Acetaminophen 500 MG TAB PO SCH ×2 (05:29→11:59)
[2022-03-21] MEDS: Acetaminophen/Codeine 30-300mg Tablet PO SCH ×2 (05:30→11:59)
[2022-03-21] MEDS: Senokot S 8.6-50 MG TAB PO SCH (08:13)
[2022-03-21] MEDS: Polyethylene Glycol 3350 17 GM Packet PO SCH (08:14)
[2022-03-21] MEDS: Donepezil HCl 10 MG TAB PO SCH (08:14)
[2022-03-21 12:03] VITALS: BP 169/66; TEMP 98.2
== END 2022-03-21 14:45 | disposition hospice, home (50) | DRG 964 ==
LOC: ERS 10:25 → ERHOLD 11:48 → CCU 17:08 → SURG B 03-19 15:08 → SURG A 03-19 18:30
PROVIDERS: ADMIT Surgery; ATTEND Surgery
PROC: 3E0234Z Introduction of Serum, Toxoid and Vaccine into Muscle, Percutaneous Approach (ICD-10-PCS; principal; 2022-03-16)
DX: S02.19XA Other fracture of base of skull, initial encounter for closed fracture (principal); S32.10XA Unspecified fracture of sacrum, initial encounter for closed fracture; F02.811 Dementia in other diseases classified elsewhere, unspecified severity, with agitation; S06.5X0A Traumatic subdural hemorrhage without loss of consciousness, initial encounter; Z66 Do not resuscitate; Z51.5 Encounter for palliative care; S32.2XXA Fracture of coccyx, initial encounter for closed fracture; M48.56XA Collapsed vertebra, not elsewhere classified, lumbar region, initial encounter for fracture; S02.119A Unspecified fracture of occiput, initial encounter for closed fracture; S06.6X0A Traumatic subarachnoid hemorrhage without loss of consciousness, initial encounter; E83.39 Other disorders of phosphorus metabolism; W06.XXXA Fall from bed, initial encounter; G30.1 Alzheimer's disease with late onset; R40.2142 Coma scale, eyes open, spontaneous, at arrival to emergency department; R40.2232 Coma scale, best verbal response, inappropriate words, at arrival to emergency department; R40.2352 Coma scale, best motor response, localizes pain, at arrival to emergency department; R40.2364 Coma scale, best motor response, obeys commands, 24 hours or more after hospital admission; R40.2234 Coma scale, best verbal response, inappropriate words, 24 hours or more after hospital admission; R40.2144 Coma scale, eyes open, spontaneous, 24 hours or more after hospital admission; E87.6 Hypokalemia; E83.42 Hypomagnesemia; I10 Essential (primary) hypertension; Z23 Encounter for immunization; Z79.899 Other long term (current) drug therapy; Z86.16 Personal history of COVID-19
CPT/HCPCS: 36415; 36416; 51798; 70450; 70486; 71045; 71260; 72125; 74177; 80048; 80053; 81001; 82550; 83735; 83880; 84100; 84484; 85025; 85610; 85730; 90715; 93005; 96365; 96367; 96374; G0390; J0690; J0696; J1815; J1953; J2405; J3475; J3490; J7050; Q9967; S0028; U0002